=== PATIENT | male | born 1995 | race Caucasian/White ===

== ENCOUNTER → 2016-07-12 | Outpatient (CLI) | payer BC, OTHER ==
--- NOTE | 2016-07-13 13:06 | DI ---
MRI CERVICAL SPINE W/O CN,07/12/2016 12:03 PM: Clinical History: Neck pain Previous Exam: None at this facility. Findings: Multiplanar MR images are obtained through the cervical spine without contrast. Bony alignment is anatomic. No fractures are seen. Vertebral body height is preserved. Marrow signal is also preserved. The prevertebral soft tissues are unremarkable. The posterior fossa is unremarkable. The paraspinal musculature is also unremarkable. The major vascular flow voids are unremarkable. The spinal cord descends normally with normal course, caliber and signal characteristics. Individual intervertebral disc spaces: C2/3: No significant stenosis. C3/4: There is disc desiccation and a small broad-based disc bulge without significant stenosis. C4/5: No significant stenosis. C5/6: No significant stenosis. C6/7: No significant stenosis. C7/T1: No significant stenosis. Impression: Minimal degenerative disc disease is at C3/4 without significant stenosis.
--- NOTE | 2016-07-13 13:20 | DI ---
CT LUMBAR SPINE W/O CONTRAST,07/12/2016 12:02 PM: Clinical History: Low back pain Previous Exam: MRI lumbar spine performed May 21, 2016 Findings: Multiple helically acquired CT images are obtained through the lumbar spine without contrast. Sagitta l and coronal reconstructions are obtained. Alignment is anatomic. There are bilateral L5 pars defects noted without displacement. There is inter body fusion of L5/S1 which appears stable. There is no significant new bone formation within the inte rvertebral disc space at this time. There are degenerative changes noted of the endplates at T12/L1. There is moderate stool noted throughout the colon. There are small broad-based disc bulges throughout the lumbar spine without significant stenosis. Impression: 1. Bilateral L5 pars defects without evidence of instability.
== END ==
LOC: CT 11:52
PROVIDERS: ATTEND Orthopaedic Surgery
DX: M54.2 Cervicalgia (principal); M54.5 Low back pain; Z98.1 Arthrodesis status
CPT/HCPCS: 72131; 72141

== ENCOUNTER → 2016-12-07 | Outpatient (CLI) | payer OTHER ==
[2016-12-07 11:01] LABS: BASOPHILS # (AUTO) 0.03 10*3/UL; BASOPHILS % (AUTO) 0.5 % (0-1); EOSINOPHILS # (AUTO) 0.05 10*3/UL; EOSINOPHILS % (AUTO) 0.9 % (0-8); HEMATOCRIT 45.3 % (42.0-52.0); HEMOGLOBIN 16.2 g/dL (14.0-18.0); LYMPHOCYTES # (AUTO) 2.07 10*3/uL; MEAN CORPUSCULAR HGB CONC 35.8 g/dL (33-37); MEAN CORPUSCULAR VOLUME 86.6 FL (80-90); MEAN PLATELET VOLUME 8.7 FL (7.4-12.2); NEUTROPHILS # (AUTO) 3.14 10*3/UL; NEUTROPHILS % (AUTO) 55.1 % (50-80); RED BLOOD COUNT 5.23 10^6/uL (4.70-6.10)
[2016-12-07 11:03] LABS: PLATELET MORPHOLOGY COMMENT NORMAL MORPHOLOGY (NORM); RBC MORPHOLOGY COMMENT NORMAL MORPHOLOGY (NORM); WBC MORPHOLOGY COMMENT NORMAL MORPHOLOGY (NORM)
[2016-12-07 11:11] LABS: BLOOD UREA NITROGEN 17 mg/dL (7-22); BUN/CREATININE RATIO 18.88 (6-20); CALCIUM 9.5 mg/dL (8.7-10.7); EST GLOMERULAR FILTRATION > 60 (>60 ml/min/1.73m(2)); SERUM ALBUMIN 4.9 g/dL (3.5-4.8)
== END ==
LOC: LAB 10:48
PROVIDERS: ATTEND Orthopaedic Surgery
DX: Z01.812 Encounter for preprocedural laboratory examination (principal)
CPT/HCPCS: 36415; 80053; 85025; 85610; 85730; 87641